=== PATIENT | male | born 1970 | race Two or more races ===

== ENCOUNTER → 2023-06-01 | Outpatient (CLI) | payer SELFPAY ==
[~2023-06-01] MED LIST: CYCL10 PO; Ultram50 MG PO
[2023-06-01 14:00] LABS: Microalb/Creat Ratio UR, Rand 9.023 mg/g (0.000-30.000)
== END ==
LOC: LAB SHORT 11:27 → LAB 11:27
PROVIDERS: Nurse Practitioner Family
DX: E11.8 Type 2 diabetes mellitus with unspecified complications (principal)
CPT/HCPCS: 82043; 82570

== ENCOUNTER → 2023-07-16 | Outpatient (CLI) | payer SELFPAY ==
[2023-07-16 14:34] LABS: CHOL/HDL RATIO 3.3; Cholesterol 114 mg/dL (50-200); HDL Cholesterol 35 mg/dL (>39); LDL/HDL RATIO 1.7; Low Density Lipoprotein Chol 60 mg/dL (0-110); Triglycerides 96 mg/dL (30-160); Very Low Density Lipoprot Chol 19 mg/dL (6-32)
[2023-07-17 15:11] LABS: CALCIUM, SERUM 9.7 mg/dL (8.7-10.2); CREATININE, SERUM 0.89 mg/dL (0.76-1.27); POTASSIUM, SERUM 4.6 mmol/L (3.5-5.2)
== END ==
LOC: LAB 09:30 → LAB SHORT 09:30
PROVIDERS: Nurse Practitioner Family
DX: E78.5 Hyperlipidemia, unspecified (principal); E11.8 Type 2 diabetes mellitus with unspecified complications; I10 Essential (primary) hypertension
CPT/HCPCS: 80048; 80061; 83036